=== PATIENT | female | born 1995 | race Caucasian/White ===

== ENCOUNTER 2016-10-03 19:36 | Inpatient (IN) | payer BC ==
[2016-10-03 20:12] LABS: ROM Internal QC QC Line Present
[2016-10-03 21:41] LABS: Hematocrit 33 % (35-47); Hemoglobin 11.1 g/dl (12.0-16.0); Mean Corpuscular HGB Conc 34 g/dl (31-36); Mean Corpuscular Hemoglobin 28 pg (27-31); Mean Corpuscular Volume 82 fL (80-97); Mean Platelet Volume 8 um3 (7.4-10.4); Red Blood Count 3.99 10^6/ul (4.0-5.4); Red Cell Distribution Width 14 % (10.5-15); White Blood Count 11.1 10^3/ul (3.5-10.8)
[2016-10-03 21:50] LABS: Albumin 3.4 g/dL (3.2-5.2); BUN/Creatinine Ratio 15.1 (8-20); Calcium 9.3 mg/dL (8.6-10.3); EGFR African American 185.5 (>60); EGFR Non-African American 144.2 (>60); Globulin 2.9 g/dL (2-4); Potassium 3.2 mmol/L (3.5-5.0); Total Bilirubin 0.4 mg/dL (0.2-1.0); Total Protein 6.3 g/dL (6.4-8.9); Uric Acid 4.3 mg/dL (2.3-6.6)
[2016-10-03] MEDS ORDERED: Oxytocin in LR* 20 UNITS/1,000 ML BAG IVPB SCH (22:00)
[2016-10-03] MEDS ORDERED: Acetaminophen TAB* 325 MG PO ONE (23:00)
[2016-10-03] MEDS ORDERED: Calcium Carbonate CHEW TAB* 500 MG (TUMS) PO ONE (23:00)
[2016-10-03] MEDS ORDERED: Calcium Carbonate CHEW TAB* 500 MG (TUMS) ONE (23:47)
[2016-10-04] MEDS ORDERED: OBEPIDURAL* 250 ML ONE (04:26)
[2016-10-04] MEDS ORDERED: Phenylephrine IV* 40 MCG/ML 10 ML SYRINGE IV PUSH PRN (05:47)
[2016-10-04] MEDS ORDERED: Sodium Citrate/Citric Acid* 15 ML UDC PO PRN (05:47)
[2016-10-04] MEDS ORDERED: Famotidine TAB* 20 MG PO PRN (05:47)
[2016-10-04] MEDS ORDERED: OBEPIDURAL* 250 ML EPIDURAL SCH (06:00)
[2016-10-04] MEDS ORDERED: Levothyroxine TAB* 75 MCG TAB PO SCH (06:00)
[2016-10-04] MEDS ORDERED: Misoprostol TAB* 200 MCG PR ONE (09:31)
[2016-10-04] MEDS ORDERED: Glycerin ADULT SUPP PR PRN (09:31)
[2016-10-04] MEDS ORDERED: oxyCODONE/Acetamin 5/325 MG* TAB PO PRN (09:31)
[2016-10-04] MEDS ORDERED: OXYTOCIN* 10 UNITS/ML 1 ML VIAL IM ONE (09:31)
[2016-10-04] MEDS ORDERED: Acetaminophen TAB* 325 MG PO PRN (09:31)
[2016-10-04] MEDS ORDERED: Witch Hazel PAD* JAR TOPICAL PRN (09:31)
[2016-10-04] MEDS ORDERED: Dibucaine 1% 28.35 GM TUBE PR PRN (09:31)
[2016-10-04] MEDS ORDERED: Oxytocin in LR* 20 UNITS/1,000 ML BAG IVPB SCH (10:00)
[2016-10-04] MEDS ORDERED: Simethicone TAB* 80 MG TAB.CHEW PO SCH (12:30)
[2016-10-04] MEDS: Ibuprofen TAB* 600 MG PO PRN (13:16)
[2016-10-04] MEDS: Docusate CAP* 100 MG PO SCH (13:17)
[2016-10-05] MEDS: Docusate CAP* 100 MG PO SCH ×4 (02:51→21:51)
[2016-10-05] MEDS: Levothyroxine TAB* 75 MCG TAB PO SCH (06:21)
[2016-10-05 08:13] LABS: Hematocrit 27 % (35-47); Hemoglobin 9.2 g/dl (12.0-16.0); Mean Corpuscular HGB Conc 34 g/dl (31-36); Mean Corpuscular Hemoglobin 28 pg (27-31); Mean Corpuscular Volume 83 fL (80-97); Mean Platelet Volume 8 um3 (7.4-10.4); Red Blood Count 3.23 10^6/ul (4.0-5.4); Red Cell Distribution Width 14 % (10.5-15); White Blood Count 11.6 10^3/ul (3.5-10.8)
[2016-10-05] MEDS: Ferrous Gluconate TAB* 324 MG TAB PO SCH ×2 (09:37→21:51)
[2016-10-05] MEDS: Ibuprofen TAB* 600 MG PO PRN ×2 (11:06→17:29)
--- NOTE | 2016-10-05 12:39 | PTEDU ---
Patient Name: LUTHER CORNELL LUTHER CORNELL selected video: Never Ever Shake a Baby to view on 10/05/2016 at 12:37:56 PM from [id number]
[2016-10-06] MEDS: Ibuprofen TAB* 600 MG PO PRN ×2 (02:47→09:07)
[2016-10-06] MEDS: Levothyroxine TAB* 75 MCG TAB PO SCH (06:16)
[2016-10-06 08:49] VITALS: BP 145/84
[2016-10-06] MEDS: Ferrous Gluconate TAB* 324 MG TAB PO SCH (09:07)
[2016-10-06] MEDS: Docusate CAP* 100 MG PO SCH ×2 (09:07→15:22)
[2016-10-09] MEDS ORDERED: Levothyroxine TAB* 75 MCG TAB PO SCH (06:00)
== END 2016-10-06 15:22 | disposition home or self-care (01) | DRG 560 ==
LOC: MCHOBOUT 19:36 → MCHOB 20:28 → MERGE 20:28 → MCHOB 10-04 14:46
PROVIDERS: ADMIT Midwife; ATTEND Midwife
PROC: 10E0XZZ Delivery of Products of Conception, External Approach (ICD-10-PCS; principal; 2016-10-03)
PROC: 4A1HXCZ Monitoring of Products of Conception, Cardiac Rate, External Approach (ICD-10-PCS; 2016-10-03)
DX: O42.913 Preterm premature rupture of membranes, unspecified as to length of time between rupture and onset of labor, third trimester (principal); E06.3 Autoimmune thyroiditis; O99.284 Endocrine, nutritional and metabolic diseases complicating childbirth; Z3A.36 36 weeks gestation of pregnancy; Z37.0 Single live birth; O69.81X0 Labor and delivery complicated by cord around neck, without compression, not applicable or unspecified; O70.0 First degree perineal laceration during delivery; O90.81 Anemia of the puerperium; O13.4 Gestational [pregnancy-induced] hypertension without significant proteinuria, complicating childbirth
CPT/HCPCS: 36415; 80053; 81002; 84112; 84550; 85025; 86850; 86900; 86901; A9270-GY; J2590

== ENCOUNTER 2017-02-01 16:43 | Emergency (ER) | payer BC ==
[2017-02-01 17:06] VITALS: BP 146/100
--- NOTE | 2017-02-01 18:30 | UC ---
Abdominal Pain Female HPI - HPI Summary HPI Summary: 3 DAYS OF LUQ PAIN. FEELS LIKE A DULL PRESSURE. NO ASSOCIATION WITH FOOD. NO CHANGE IN APPETITE. SOMETIMES RADIATES AROUND TO FLANK AND DOWN TO GROIN. NO URINARY SX. LAST BM TODAY WAS NORMAL. NO NAUSEA, VOMITING OR DIARRHEA. NO FEVER. 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 Negative: Diaphoresis, Fever, Cough, Chest Pain, Dizzy, Constipation, Blood in Stool, Urinary Symptoms , Decreased Appetite, Vaginal Bleeding, Vaginal Discharge, Nausea, Vomiting, Diarrhea Allergies/Adverse Reactions: Allergies Allergy/AdvReac Type Severity Reaction Status Date / Time No Known Allergies Allergy Verified 02/01/17 17:06 Home Medications: Home Medications Levothyroxine TAB* [Synthroid 75 MCG TAB*] 75 mg PO DAILY 02/01/17 [History Confirmed 02/01/17] PMH/Surg Hx/FS Hx/Imm Hx Endocrine History Of: Reports: Thyroid Disease - Hashimotos Denies: Diabetes Cardiovascular History Of: Reports: Hypertension - Gestational Denies: Cardiac Disorders Respiratory History Of: Denies: COPD GI/ History Of: Denies: Ulcer - Surgical History Surgical History: None - Family History Known Family History: Positive: Hypertension, Diabetes - Social History Alcohol Use: None Substance Use Type: None Smoking Status (MU): Never Smoked Tobacco Review of Systems Constitutional: Negative Respiratory: Negative Cardiovascular: Negative Gastrointestinal: Abdominal Pain All Other Systems Reviewed And Are Negative: Yes Physical Exam Triage Information Reviewed: Yes Appearance: Well-Appearing, No Pain Distress, Well-Nourished Vital Signs: Initial Vital Signs Temp 98.9 F 02/01/17 17:02 Pulse 85 02/01/17 17:02 Resp 16 02/01/17 17:02 BP 146/100 02/01/17 17:02 Pulse Ox 98 02/01/17 17:02 Vital Signs Reviewed: Yes Eyes: Positive: Conjunctiva Clear ENT: Positive: Hearing grossly normal Neck: Positive: Supple Respiratory Exam: Normal Cardiovascular Exam: Normal Abdomen Description: Positive: Nontender, Soft. Negative: CVA Tenderness (R), CVA Tenderness (L), Distended, Guarding Bowel Sounds: Positive: Present Musculoskeletal: Positive: No Edema Neurological: Positive: Alert Psychological: Positive: Age Appropriate Behavior Skin: Negative: rashes Abd Pain Female Course/Dx - Differential Dx/Diagnosis Provider Diagnoses: ABDOMINAL PAIN, NOS Discharge - Discharge Plan Condition: Stable Disposition: HOME Patient Education Materials: Abdominal Pain (ED) Referrals: Wesley STAFFORD,Savi Maradiaga [Medical Doctor] - (KEEP YOUR APPT SCHEDULED NEXT WEEK) Additional Instructions: ABDOMINAL PAIN: There are many causes of abdominal pain. Pain can mean a serious problem requiring surgery (such as appendicitis), or an innocent problem which goes away on its own (such as a viral infection). Often, time must pass to determine the cause of pain. The physician does not feel that hospitalization is necessary, at present. Conditions may change, however, within the next 24 hours. Therefore, call the doctor or come back for re-examination if any problems occur, such as: 1) Pain which becomes more severe, steady, or becomes concentrated in one specific area. Also, pain which is more severe with movement or coughing. 2) Vomiting which persists or becomes more frequent. 3) Blood in the vomitus, urine, or bowel movements. Blood in the stool may have a tarry or black appearance. 4) Shaking chills or fever greater than 100 degrees F. 5) The abdomen becomes more distended or swollen. 6) Bowel movements cease. 7) Failure to improve as expected. YOUR URINE TEST WAS UNREMARKABLE AND YOUR SYMPTOMS WERE RESOLVED AT THE TIME OF EVALUATION. CAREFUL OBSERVATION FOR NOW. GO TO THE ER WITHOUT FAIL IF YOUR SYMPTOMS RECUR OR WORSEN.
== END 2017-02-01 18:26 | disposition home or self-care (01) ==
LOC: UCEAST 16:43
DX: R10.12 Left upper quadrant pain (principal); M54.9 Dorsalgia, unspecified; E06.3 Autoimmune thyroiditis
CPT/HCPCS: 81003; 99201; G0463

== ENCOUNTER 2017-09-22 18:47 | Emergency (ER) | payer BC ==
[2017-09-22] MEDS ORDERED: Ondansetron ODT TAB* 4 MG PO ONE (19:07)
[2017-09-22 20:05] VITALS: BP 160/102
--- NOTE | 2017-09-22 21:39 | UC ---
Iliana Gamez Thomas, scribed for Juan C Fiore MD on 09/22/17 at 1927 . Hypertension HPI - HPI Summary HPI Summary: The patient is a 22 year old female who is 7-8 weeks presenting to Urgent Care complaining of nausea and vomiting that began this morning. She says she is unable to keep fluids down. She says even when I dont eat anything , I keep on vomiting. She has a history of gestational hypertension. Her blood pressure measured at home was 170/103 and her blood pressure measured at Urgent Care is 160/87. Patient additionally c/o a headache and diarrhea. The patient has treated the symptoms with acetaminophen prior to arrival. Patient denies leg swelling. G=2, P=1. The patient went into labor during her prior due to elevated blood pressure. - History of Current Complaint Chief Complaint: UCAbdominalPain Stated Complaint: VOMITTING, DIHARREA (7 WEEKS PREG) Time Seen by Provider: 09/22/17 18:52 Hx Obtained From: Patient Hx Last Menstrual Period: 08/02/17 ?: Yes - 7-8 weeks Onset/Duration: Lasting Hours - onset this AM, Still Present Timing: Constant Reported Blood Pressure Prior To Arrival:: 170/103 Aggravating Factor(s): Nothing Alleviating Factor(s): Nothing Associated Signs And Symptoms: Positive: Headaches. Negative: Swelling Related Hx: Diagnosed As: - History of gestational hypertension Current Medications: Other - Acetaminophen earlier today - Allergies/Home Medications Allergies/Adverse Reactions: Allergies Allergy/AdvReac Type Severity Reaction Status Date / Time No Known Allergies Allergy Verified 09/22/17 18:54 Home Medications: Home Medications Acetaminophen TAB* [Tylenol TAB*] 650 mg PO Q4H PRN 09/22/17 [History Confirmed 09/22/17] PMH/Surg Hx/FS Hx/Imm Hx Previously Healthy: No - Gestational hypertension; NEGATIVE: DM - Surgical History Surgical History: None - Family History Known Family History: Positive: Cardiac Disease, Hypertension, Diabetes - Social History Lives: With Family Alcohol Use: None Substance Use Type: None Smoking Status (MU): Never Smoked Tobacco - Immunization History Most Recent Influenza Vaccination: unknown Most Recent Tetanus Shot: 09/14/16 Most Recent Pneumonia Vaccination: none Review of Systems Constitutional: Other - NEGATIVE: fever Cardiovascular: Other - Elevated blood pressure Gastrointestinal: Vomiting, Diarrhea, Nausea Neurological: Headache Is Patient Immunocompromised?: No All Other Systems Reviewed And Are Negative: Yes Physical Exam Triage Information Reviewed: Yes Vital Signs: Initial Vital Signs Temp 99 F 09/22/17 18:57 Pulse 98 09/22/17 18:57 Resp 18 09/22/17 18:57 BP 160/87 09/22/17 18:57 Pulse Ox 99 09/22/17 18:57 Vital Signs Reviewed: Yes - Additional Comments VITAL SIGNS: Reviewed. GENERAL: Patient is a well-developed and nourished female who is lying comfortable in the stretcher. Patient is not in any acute respiratory distress. HEAD AND FACE: Normocephalic EYES: PERRLA, EOMI x 2. EARS: Hearing grossly intact. MOUTH: Oropharynx within normal limits. NECK: Supple, trachea is midline, no adenopathy, no JVD, no carotid bruit. CHEST: Symmetric, no tenderness at palpation LUNGS: Clear to auscultation bilaterally. No wheezing or crackles. CVS: Regular rate and rhythm, S1 and S2 present, no murmurs or gallops appreciated. ABDOMEN: Soft, non-tender. Bowel sounds are normal. No abdominal abnormal pulsations. EXTREMITIES: Full ROM in all major joints, no edema, no cyanosis or clubbing. NEURO: Alert and oriented x 3. No acute neurological deficits. Speech is normal and follows commands. SKIN: Dry and warm Re-Evaluation - Re-Evaluation First Eval Re-Evaluation Time: 20:10 Change: Unchanged Comment: The patient's blood pressure was measured at 160/102. We will send her to the ED. Hypertension Course/Dx - Course Course Of Treatment: The patient is a 22 year old female who is 7-8 weeks presenting to Urgent Care complaining of nausea and vomiting that began this morning. She says she is unable to keep fluids down. She says even when I dont eat anything, I keep on vomiting. She has a history of gestational hypertension. Her blood pressure measured at home was 170/103 and her blood pressure measured at Urgent Care is 160/87. Patient additionally c/o a headache and diarrhea. The patient has treated the symptoms with acetaminophen prior to arrival. Patient denies leg swelling. G=2, P=1. The patient went into labor during her prior due to elevated blood pressure. On re-evaluation at 20:10, her blood pressure is 160/102. At urgent care, the patient was given acetaminophen. Urinalysis shows 1+ leukocyte esterase. The patient is diagnosed with headache, increased blood pressure, and with nausea/vomiting. After some time at Urgent Care, the patients blood pressure is still increased and she has a history of preeclampsia. Therefore, the patient needs further workup in the ED. I offered the patient an ambulance but she instead chooses to travel by private care. - Differential Dx/Diagnosis Differential Diagnosis/HQI PQRI: Hypertension, Hypertensive Crisis, Hypertensive Urgency Provider Diagnoses: Headache, Increased blood pressure, with nausea/ vomiting Discharge - Discharge Plan Condition: Stable Disposition: OTHER Discharge Disposition Comment: Patient will travel by private care to [facility]. Patient Education Materials: Nausea and Vomiting in (ED), Hypertension (ED), General Headache (ED) Referrals: Wesley STAFFORD,Savi Maradiaga [Primary Care Provider] - Additional Instructions: GO IMMEDIATELY TO [facility] EM[facility]. The documentation as recorded by the Iliana jaramillo Thomas accurately reflects the service I personally performed and the decisions made by me, Juan C Fiore MD.
--- NOTE | 2017-09-24 14:56 | UC ---
Progress - Progress Note Progress Note: pt with neg urine culture no change mason 09/24/2017 Re-Evaluation - Re-Evaluation First Eval Re-Evaluation Time: 20:10 Change: Unchanged Comment: The patient's blood pressure was measured at 160/102. We will send her to the ED.
== END 2017-09-22 20:16 ==
LOC: UCEAST 18:47 → MERGE 18:47 → UCEAST 20:16
DX: O21.9 Vomiting of pregnancy, unspecified (principal); O09.291 Supervision of pregnancy with other poor reproductive or obstetric history, first trimester; O99.89 Other specified diseases and conditions complicating pregnancy, childbirth and the puerperium; R51 Headache; R19.7 Diarrhea, unspecified; R03.0 Elevated blood-pressure reading, without diagnosis of hypertension; R82.99 Other abnormal findings in urine; Z3A.01 Less than 8 weeks gestation of pregnancy
CPT/HCPCS: 81003; 87086; 99212; A9270-GY; G0463

== ENCOUNTER 2017-09-22 20:38 | Emergency (ER) | payer BC ==
[2017-09-22] MEDS ORDERED: NS 0.9% 1000 ML* 2,000 ML IV ONE (21:26)
[2017-09-22] MEDS ORDERED: Metoclopramide IV* 5 MG/ML 2 ML VIAL IV ONE (21:28)
[2017-09-22] MEDS ORDERED: diPHENhydraMINE IV* 50 MG/ML 1 ml VIAL (BENADRYL) IV ONE (21:29)
[2017-09-22 21:59] LABS: Hematocrit 39 % (35-47); Hemoglobin 13.7 g/dl (12.0-16.0); Mean Corpuscular HGB Conc 35 g/dl (31-36); Mean Corpuscular Hemoglobin 30 pg (27-31); Mean Corpuscular Volume 85 fL (80-97); Mean Platelet Volume 7 um3 (7.4-10.4); Red Blood Count 4.61 10^6/ul (4.0-5.4); Red Cell Distribution Width 13 % (10.5-15); White Blood Count 11.6 10^3/ul (3.5-10.8)
[2017-09-22 22:06] LABS: Albumin 4.5 g/dL (3.2-5.2); BUN/Creatinine Ratio 11.7 (8-20); EGFR African American 119.5 (>60); EGFR Non-African American 92.9 (>60); Potassium 3.8 mmol/L (3.5-5.0); Total Bilirubin 0.7 mg/dL (0.2-1.0); Total Protein 7.5 g/dL (6.4-8.9)
[2017-09-22 23:20] LABS: Urine Bilirubin Negative (Negative); Urine Glucose Negative (Negative); Urine Nitrite Negative (Negative)
--- NOTE | 2017-09-23 02:04 | ED ---
Tariq Gamez Tiffany, scribed for Mariano Torres on 09/22/17 at 2128 . Headache - HPI Summary HPI Summary: This patient is a 22 year old F referred from [facility] to [facility] accompanied by mother with a chief complaint of headache since this morning. The patient rates the pain 8/10 in severity. Symptoms aggravated by nothing. Symptoms alleviated by nothing. Patient reports nausea, vomiting, and hypertension. Patient denies abdominal pain, vaginal bleeding, and fever. The patient was given anti-nausea mediation earlier at [facility] without relief. The patient is 8 weeks . - History Of Current Complaint Chief Complaint: EDNauseaVomitDiarrh Stated Complaint: HIGH BP/8 WKS PREG Time Seen by Provider: 09/22/17 21:13 Hx Obtained From: Patient Onset/Duration: Started hours ago - This morning, Still Present Aggravating Factor: Bright Lights Allevating Factors: Nothing Associated Signs And Symptoms: Other (Noted In Comments) - nausea, vomiting, hypertension; NEGATIVE: abdominal pain, vaginal bleeding, and fever - Allergies/Home Medications Allergies/Adverse Reactions: Allergies Allergy/AdvReac Type Severity Reaction Status Date / Time No Known Allergies Allergy Verified 09/22/17 18:54 PMH/Surg Hx/FS Hx/Imm Hx Previously Healthy: No Endocrine/Hematology History: Reports: Hx Thyroid Disease - JERRY'S Neurological History: Reports: Hx Migraine Infectious Disease History: No Infectious Disease History: Denies: Traveled Outside the [place] in Last 30 Days - Family History Known Family History: Positive: Cardiac Disease, Hypertension, Diabetes - Social History Alcohol Use: None Hx Substance Use: No Substance Use Type: Reports: None Hx Tobacco Use: No Smoking Status (MU): Never Smoked Tobacco Review of Systems Positive: Other - Hypertension. Negative: Fever Positive: Vomiting, Nausea. Negative: Abdominal Pain Positive: other - NEGATIVE: vaginal bleeding Positive: Headache All Other Systems Reviewed And Are Negative: Yes Physical Exam - Summary Physical Exam Summary: Appearance: Well appearing, no pain distress Skin: warm, dry, reflects adequate perfusion Head/face: normal Eyes: EOMI, SANDRA ENT: normal Neck: supple, non-tender Respiratory: CTA, breath sounds present Cardiovascular: RRR, pulses symmetrical Abdomen: non-tender, soft Bowel: present Musculoskeletal: normal, strength/ROM intact Neuro: normal, sensory motor intact, A&Ox3 Triage Information Reviewed: Yes Vital Signs On Initial Exam: Initial Vitals Temp Pulse Resp BP Pulse Ox 98.1 F 108 18 150/97 100 09/22/17 20:47 09/22/17 20:47 09/22/17 20:47 09/22/17 20:47 09/22/17 20:47 Vital Signs Reviewed: Yes Diagnostics - Vital Signs Vital Signs Temp Pulse Resp BP Pulse Ox 09/22/17 20:47 98.1 F 108 18 150/97 100 - Laboratory Lab Results: Lab Results 09/22/17 09/22/17 09/22/17 Range/Units 21:31 21:31 21:31 WBC 11.6 H (3.5-10.8) 10^3/ul RBC 4.61 (4.0-5.4) 10^6/ul Hgb 13.7 (12.0-16.0) g/dl Hct 39 (35-47) % MCV 85 (80-97) fL MCH 30 (27-31) pg MCHC 35 (31-36) g/dl RDW 13 (10.5-15) % Plt Count 249 (150-450) 10^3/ul MPV 7 L (7.4-10.4) um3 Neut % (Auto) 74.1 (38-83) % Lymph % (Auto) 21.5 L (25-47) % [place] % (Auto) 3.7 (1-9) % Eos % (Auto) 0.4 (0-6) % Baso % (Auto) 0.3 (0-2) % Absolute Neuts (auto) 8.6 H (1.5-7.7) 10^3/ul Absolute Lymphs (auto) 2.5 (1.0-4.8) 10^3/ul Absolute Monos (auto) 0.4 (0-0.8) 10^3/ul Absolute Eos (auto) 0.1 (0-0.6) 10^3/ul Absolute Basos (auto) 0 (0-0.2) 10^3/ul Absolute Nucleated RBC 0 10^3/ul Nucleated RBC % 0 INR (Anticoag Therapy) 0.98 (0.77-1.02) APTT 31.7 (26.0-36.3) seconds Sodium (133-145) mmol/L Potassium (3.5-5.0) mmol/L Chloride (101-111) mmol/L Carbon Dioxide (22-32) mmol/L Anion Gap (2-11) mmol/L BUN (6-24) mg/dL Creatinine (0.51-0.95) mg/dL Est GFR ( Amer) (>60) Est GFR (Non-Af Amer) (>60) BUN/Creatinine Ratio (8-20) Glucose (70-100) mg/dL Calcium (8.6-10.3) mg/dL Total Bilirubin (0.2-1.0) mg/dL AST (13-39) U/L ALT (7-52) U/L Alkaline Phosphatase (34-104) U/L Total Protein (6.4-8.9) g/dL Albumin (3.2-5.2) g/dL Globulin (2-4) g/dL Albumin/Globulin Ratio (1-3) Beta HCG, Quant mIU/mL Urine Color Urine Appearance Urine pH (5-9) Ur Specific [place] (1.010-1.030) Urine Protein (Negative) Urine Ketones (Negative) Urine Blood (Negative) Urine Nitrate (Negative) Urine Bilirubin (Negative) Urine Urobilinogen (Negative) Ur Leukocyte Esterase (Negative) Urine Glucose (Negative) Blood Type A Positive Antibody Screen Negative 09/22/17 09/22/17 Range/Units 21:31 23:09 WBC (3.5-10.8) 10^3/ul RBC (4.0-5.4) 10^6/ul Hgb (12.0-16.0) g/dl Hct (35-47) % MCV (80-97) fL MCH (27-31) pg MCHC (31-36) g/dl RDW (10.5-15) % Plt Count (150-450) 10^3/ul MPV (7.4-10.4) um3 Neut % (Auto) (38-83) % Lymph % (Auto) (25-47) % [place] % (Auto) (1-9) % Eos % (Auto) (0-6) % Baso % (Auto) (0-2) % Absolute Neuts (auto) (1.5-7.7) 10^3/ul Absolute Lymphs (auto) (1.0-4.8) 10^3/ul Absolute Monos (auto) (0-0.8) 10^3/ul Absolute Eos (auto) (0-0.6) 10^3/ul Absolute Basos (auto) (0-0.2) 10^3/ul Absolute Nucleated RBC 10^3/ul Nucleated RBC % INR (Anticoag Therapy) (0.77-1.02) APTT (26.0-36.3) seconds Sodium 134 (133-145) mmol/L Potassium 3.8 (3.5-5.0) mmol/L Chloride 101 (101-111) mmol/L Carbon Dioxide 25 (22-32) mmol/L Anion Gap 8 (2-11) mmol/L BUN 9 (6-24) mg/dL Creatinine 0.77 (0.51-0.95) mg/dL Est GFR ( Amer) 119.5 (>60) Est GFR (Non-Af Amer) 92.9 (>60) BUN/Creatinine Ratio 11.7 (8-20) Glucose 99 (70-100) mg/dL Calcium 10.0 (8.6-10.3) mg/dL Total Bilirubin 0.70 (0.2-1.0) mg/dL AST 18 (13-39) U/L ALT 19 (7-52) U/L Alkaline Phosphatase 46 (34-104) U/L Total Protein 7.5 (6.4-8.9) g/dL Albumin 4.5 (3.2-5.2) g/dL Globulin 3.0 (2-4) g/dL Albumin/Globulin Ratio 1.5 (1-3) Beta HCG, Quant 12875.00 mIU/mL Urine Color Straw Urine Appearance Cloudy Urine pH 7.0 (5-9) Ur Specific [place] 1.006 L (1.010-1.030) Urine Protein Negative (Negative) Urine Ketones Negative (Negative) Urine Blood Negative (Negative) Urine Nitrate Negative (Negative) Urine Bilirubin Negative (Negative) Urine Urobilinogen Negative (Negative) Ur Leukocyte Esterase Negative (Negative) Urine Glucose Negative (Negative) Blood Type Antibody Screen Result Diagrams: 09/22/17 21:31 09/22/17 21:31 Lab Statement: Any lab studies that have been ordered have been reviewed, and results considered in the medical decision making process. - Additional Comments Diagnostic Additional Comments: US Obstetric reveals, per radiologist, There is an intrauterine gestational sac with a yolk sac but no pole is visualized. The gestational sac corresponds to 6 weeks. A pole should be visualized by this time. This could represent an embryonic gestation/failed gestation. Recommended follow up to make sure there is no pole not yet visualized. There is one point a centimeter by 1.9 cm right corpus luteum cyst. Normal left ovary. ED physician has reviewed this radiology report. Headache Course/Dx - Course Course Of Treatment: This patient is a 22 year old F referred from [facility] to [facility] accompanied by mother with a chief complaint of headache since this morning. US Obstetric reveals, per radiologist, There is an intrauterine gestational sac with a yolk sac but no pole is visualized. The gestational sac corresponds to 6 weeks. A pole should be visualized by this time. This could represent an embryonic gestation/failed gestation. Recommended follow up to make sure there is no pole not yet visualized. There is one point a centimeter by 1.9 cm right corpus luteum cyst. Normal left ovary. Bloodwork/UA obtained. In the ED course the patient was given Reglan and Benadryl. We discussed patient care with Dr. Grover (OBGYN) who recommended to follow up appointment in three days. Patient will be discharged with prescription for Zofran and follow up from OBGYN. The patient is agreeable with this plan. - Diagnoses Differential Diagnosis/HQI/PQRI: Other - iup/missed /nausea/headache Provider Diagnoses: early missed - Physician Notifications Discussed Care Of Patient With: Miguel Grover Time Discussed With Above Provider: 01:46 Instructed by Provider To: Other - Dr. Grover (OBGYN) recommended a follow up appointment in three days. Discharge - Discharge Plan Condition: Stable Disposition: HOME Prescriptions: Ondansetron ODT TAB* [Zofran 4 MG Odt TAB*] 4 mg PO Q8H PRN #15 tab.odt MDD 3 PRN Reason: Nausea Patient Education Materials: Abdominal Pain in (ED) Referrals: Wesley STAFFORD,Savi Maradiaga [Primary Care Provider] - Miguel Grover MD [Medical Doctor] - 3 Days Additional Instructions: Follow up with OBGYN in 3 days. Return to the Emergency Room if current symptoms worsen or if new symptoms develop. The documentation as recorded by the Tariq jaramillo Tiffany accurately reflects the service I personally performed and the decisions made by , Mariano Torres.
[2017-09-23 02:12] VITALS: BP 136/85
--- NOTE | 2017-09-23 08:43 | RAD ---
Indication: . Real-time sonography of the vaginal technique. There is an intrauterine gestational sac noted with a mean sac size of 1.2 cm corresponding to gestational age of 6 weeks 0 days. pole is not identified. Follow-up exam is suggested. Correlation with quantitative hCG is suggested. The right ovary measures 3.0 x 2.4 x 3.5 cm. Left ovary measures 2.7 x 2.2 x 2.0 cm. IMPRESSION: An intrauterine gestational sac is noted but no pole is identified. The gestational sac size corresponds to gestational age of 6 weeks 0 days. The possibility of a blighted ovum should BE considered. Follow-up exam and serial follow-up quantitative beta hCG is suggested.
== END 2017-09-23 02:11 | disposition home or self-care (01) ==
LOC: MERGE 20:38 → ED 20:38
DX: O02.1 Missed abortion (principal); Z3A.01 Less than 8 weeks gestation of pregnancy
CPT/HCPCS: 36415; 76801; 80053; 81003; 84702; 85025; 85610; 85730; 86850; 86900; 86901; 96374; 96375; 99283; J1200; J2765

== ENCOUNTER 2018-04-30 07:29 | Inpatient (IN) | payer BC ==
[2018-04-30] MEDS ORDERED: Oxytocin in LR* 20 UNITS/1,000 ML BAG IVPB SCH (09:00)
[2018-04-30] MEDS ORDERED: Penicillin G Potassium IV* 5,000,000 UNITS in NS 0.9% 100 ML* 100 ML IVPB ONE (09:30)
[2018-04-30 10:30] LABS: ABS Basophils 0 10^3/ul (0-0.2); ABS Eosinophils 0.1 10^3/ul (0-0.6); ABS Lymphocytes 1.8 10^3/ul (1.0-4.8); ABS Monocytes 0.4 10^3/ul (0-0.8); ABS Neutrophils 5.9 10^3/ul (1.5-7.7); ABS Nucleated RBC 0 10^3/ul; Eosinophil % 0.7 % (0-6); Hematocrit 36 % (35-47); Hemoglobin 12.4 g/dl (12.0-16.0); Lymphocyte % 22.4 % (25-47); Mean Corpuscular HGB Conc 35 g/dl (31-36); Mean Corpuscular Hemoglobin 29 pg (27-31); Mean Corpuscular Volume 83 fL (80-97); Mean Platelet Volume 8.2 um3 (7.4-10.4); Nucleated Red Blood Cells % 0.1; Platelet Count 179 10^3/ul (150-450); Red Blood Count 4.32 10^6/ul (4.00-5.40); Red Cell Distribution Width 15 % (10.5-15); White Blood Count 8.1 10^3/ul (3.5-10.8)
--- NOTE | 2018-04-30 11:30 | HP ---
General Information - Reason for Visit Pt presents for IND due to CHTN with superimposed PEC. BPs mildly elevated. Was here for migraine on monday and says that resolved with fioricet. - General Information Maternal Age: 23 Grav: 2 Para: 1 SAB: 0 IEA: 0 Estimated Due Date: 05/21/18 Determined By: Early Ultrasound Maternal Blood Type and Rh: A Positive - Results this Serology/RPR Result: Non-Reactive Rubella Result: Immune HBsAg Result: Negative HIV Result: Negative GBS Culture Result: Positive Past Medical History Delivery History: Hx Complicated Vaginal Delivery, See Records - PEC in prior . PROM @36+wks Pertinent Past Medical History: See Records Pertinent Past Surgical History: None Pertinent Family History: Non-Contributory - Antepartal Records Antepartal Records: Reviewed, Complicated by: - CHTN, PEC, Review of Systems Constitutional: Comfortable CV Complaint: No Respiratory: Shortness of Breath: No Gastrointestinal: No Nausea/Vomiting, Normal Bowel Movement Genitourinary: No Dysuria, No Bleeding, No Leaking Fluid Musculoskeletal: No Complaint Neurological: No Headache, No Visual Changes Movement: Normal Exam Allergies/Adverse Reactions: Allergies No Known Allergies Allergy (Verified 04/30/18 07:13) BP mildly elevated Lab Values - Entire Visit: Laboratory Tests 04/30/18 04/30/18 10:14 10:14 WBC 8.1 RBC 4.32 Hgb 12.4 Hct 36 MCV 83 MCH 29 MCHC 35 RDW 15 Plt Count 179 MPV 8.2 Neut % (Auto) 72.3 Lymph % (Auto) 22.4 L [place] % (Auto) 4.4 Eos % (Auto) 0.7 Baso % (Auto) 0.2 Absolute Neuts (auto) 5.9 Absolute Lymphs (auto) 1.8 Absolute Monos (auto) 0.4 Absolute Eos (auto) 0.1 Absolute Basos (auto) 0 Absolute Nucleated RBC 0 Nucleated RBC % 0.1 Blood Type A Positive Antibody Screen Negative - Measurements Height: 5 ft 4.5 in Weight: 224 lb Weight in lbs: [phone] Body Mass Index (BMI): 37.8 Pre- Weight: 201 lb Weight Gained This : 23 lbs and 0 ozs - Exam Breast: Breast Exam Deferred Extremities: No Edema Heart: Normal Rhythm/Heart Sounds HEENT: No Significant Findings - Abdominal Exam Abdomen Exam: Non-Tender, Fundal Height Consistent with Dates - Ultrasound/Biophysical Profile Ultrasound Status: Not Done Targeted Exam Findings Cervical Exam: 1cm Effacement: 50% Station: -1 Presenting Part: Vertex Membrane Status: Intact EFM Findings - External Monitor Findings Baseline Heart Rate: 130 External Monitor Findings: Accelerations Present, No Pattern of Variable or Late Decelerations, Variability Moderate, Baseline Stable Contractions: Irregular Assessment/Plan - Assessment @37wks with CHTN and superimposed PEC for induction of labor. BPs mildly elevated. - Obstetrical Risk Factors Obstetrical Risk Factors: GBS Positive, PreEclampsia, Chronic Hypertension - Plan Plan: Induction, Antibiotic Prophylaxis, Admit - Anticipate Vaginal Delivery
[2018-04-30] MEDS: Penicillin G Potassium IV* 2,500,000 UNITS in NS 0.9% 100 ML* 100 ML IVPB SCH ×2 (17:46→21:56)
[2018-04-30] MEDS ORDERED: OBEPIDURAL* 250 ML EPIDURAL ONE (19:08)
[2018-04-30] MEDS ORDERED: Famotidine TAB* 20 MG PO PRN (20:33)
[2018-04-30] MEDS ORDERED: Phenylephrine IV* 40 MCG/ML 10 ML SYRINGE IV PUSH PRN (20:33)
[2018-04-30] MEDS ORDERED: Sodium Citrate/Citric Acid* 15 ML UDC PO PRN (20:33)
[2018-04-30] MEDS ORDERED: OBEPIDURAL* 250 ML EPIDURAL SCH (21:00)
[2018-05-01] MEDS ORDERED: Witch Hazel PAD* JAR TOPICAL PRN (00:35)
[2018-05-01] MEDS ORDERED: Dibucaine 1% 28.35 GM TUBE PR PRN (00:35)
[2018-05-01] MEDS ORDERED: Glycerin ADULT SUPP PR PRN (00:35)
[2018-05-01] MEDS: Ibuprofen TAB* 600 MG PO PRN ×3 (02:43→19:59)
[2018-05-01] MEDS: Levothyroxine TAB* 88 MCG TAB PO SCH (05:39)
--- NOTE | 2018-05-01 06:58 | PROCNOTE ---
[facility] OB: Delivery Note - Delivery A Date of : 05/01/18 Time of : 00:19 Weight at : 7 lb 5 oz Score 1 Minute: 9 Score 5 Minutes: 9 Gestational Age in Weeks and Days at Delivery: 37 Weeks and 1 Days Delivery Method: Spontaneous Vaginal Labor: Induced Amniotic Fluid: Clear Estimated Blood Loss: 200 Anesthesia/Analgesia: CEI for Labor - Nursery Level of Nursery: Regular/Bedside - Perineum Perineal Injury: None/Intact - Events Delivery Events of Note: Pitocin During Labor, Supplemental O2 to Mother, Full Course of Antibiotics - Additional Delivery Notes Additional Delivery Notes: Pt was induced at 37wks for CHTN with superimposed PEC - mild. BPs were well controlled in the mild range during labor. She was started on pitocin and progressed to 4cm, received an epidural and continued to progress to fully dilated. She pushed 12min to deliver the infant in ARABELLA position followed by the rest of the body. The baby was placed on mom's abdomen and the cord was clamped x2 and cut after 1min. The placenta delivered with gentle cord traction and fundal massage. It appeared intact. No lacerations. Fundus firm. Good hemostasis. Mom and baby stable.
[2018-05-01] MEDS: Docusate CAP* 100 MG PO SCH ×3 (08:19→19:59)
[2018-05-01] MEDS: Acetaminophen TAB* 325 MG PO PRN ×3 (08:19→19:59)
[2018-05-01] MEDS ORDERED: Simethicone TAB* 80 MG TAB.CHEW PO SCH (08:30)
[2018-05-02] MEDS: Levothyroxine TAB* 88 MCG TAB PO SCH (07:04)
[2018-05-02 07:06] LABS: ABS Basophils 0 10^3/ul (0-0.2); ABS Eosinophils 0.1 10^3/ul (0-0.6); ABS Lymphocytes 2.4 10^3/ul (1.0-4.8); ABS Monocytes 0.5 10^3/ul (0-0.8); ABS Neutrophils 5.2 10^3/ul (1.5-7.7); ABS Nucleated RBC 0 10^3/ul; Eosinophil % 1.8 % (0-6); Hematocrit 31 % (35-47); Hemoglobin 10.7 g/dl (12.0-16.0); Lymphocyte % 29.4 % (25-47); Mean Corpuscular HGB Conc 35 g/dl (31-36); Mean Corpuscular Hemoglobin 29 pg (27-31); Mean Corpuscular Volume 83 fL (80-97); Mean Platelet Volume 7.9 um3 (7.4-10.4); Nucleated Red Blood Cells % 0.1; Platelet Count 161 10^3/ul (150-450); Red Blood Count 3.66 10^6/ul (4.00-5.40); Red Cell Distribution Width 15 % (10.5-15); White Blood Count 8.3 10^3/ul (3.5-10.8)
[2018-05-02] MEDS: Ibuprofen TAB* 600 MG PO PRN ×3 (08:45→21:15)
[2018-05-02] MEDS: Docusate CAP* 100 MG PO SCH ×3 (08:45→21:15)
[2018-05-02] MEDS ORDERED: Ferrous Gluconate TAB* 324 MG TAB PO SCH (09:00)
[2018-05-03 03:05] VITALS: BP 144/86
[2018-05-03] MEDS: Levothyroxine TAB* 88 MCG TAB PO SCH (06:47)
[2018-05-03] MEDS: Docusate CAP* 100 MG PO SCH (07:29)
[2018-05-03] MEDS: Ibuprofen TAB* 600 MG PO PRN (07:30)
== END 2018-05-03 11:38 | disposition home or self-care (01) | DRG 560 ==
LOC: MCHOBOUT 07:29 → MCHOB 08:35
PROVIDERS: ADMIT Obstetrics & Gynecology; ATTEND Obstetrics & Gynecology
PROC: 3E033VJ Introduction of Other Hormone into Peripheral Vein, Percutaneous Approach (ICD-10-PCS; principal; 2018-04-30)
PROC: 4A1HXCZ Monitoring of Products of Conception, Cardiac Rate, External Approach (ICD-10-PCS; 2018-04-30)
PROC: 10E0XZZ Delivery of Products of Conception, External Approach (ICD-10-PCS; 2018-05-01)
DX: O11.4 Pre-existing hypertension with pre-eclampsia, complicating childbirth (principal); O99.284 Endocrine, nutritional and metabolic diseases complicating childbirth; E03.9 Hypothyroidism, unspecified; O69.81X0 Labor and delivery complicated by cord around neck, without compression, not applicable or unspecified; O99.824 Streptococcus B carrier state complicating childbirth; Z3A.37 37 weeks gestation of pregnancy; Z37.0 Single live birth
CPT/HCPCS: 36415; 85025; 86850; 86900; 86901; A9270-GY; J2540